=== PATIENT | female | born 1995 | race Caucasian/White ===

== ENCOUNTER 2019-01-24 08:16 | Emergency (ER) | payer MEDICAID, OTHER ==
[~2019-01-24] VITALS: Ht 170.2 cm; Wt 59.0 kg
[2019-01-24 08:21] VITALS: BP 133/64
--- NOTE | 2019-01-24 08:28 | NUR ---
Patient ambulated to bed 7 at this time.
--- NOTE | 2019-01-24 08:51 | NUR ---
PATIENT PRESENTS TO ED WITH THE CHIEF C/O COUGH FOR ONE WEEK. PT STATED TINGLING AND CHEST TIGHTNESS AND PALPITATION STARTED SINCE YESTERDAY. LUNGS CLEAR ON AUSCULTATION. COUGH WITH PHLEGM PRESENT, NO BLOOD IN PHLEGM. PER PT SHE VISITED HER PCP ON FRIDAY AND HAS BEEN TAKING MEDICINE SINCE THEN PER PRESCRIPTION. SHE WAS TOLD THAT SHE HAD INFECTION. PT DOESNOT WHAT INFECTION SHE HAS AND WAHT MEDICINE SHE IS TAKING. STATED SHE IS NAUSEATED, VOMITED X1. NO BLOOD IN VOMIT. DENIES DIARRHEA. SKIN IS PINK/WARM/DRY. AAOX4 WITH EVEN AND STEADY GAIT. HR EVEN AND REGULAR. PT DENIES ANY FEVER, CP, SOB AT THIS TIME. PATIENT STATES PAIN OF 5/10 AT THIS TIME. PLACED PT ON MONITOR. VSS. PATIENT POSITIONED FOR COMFORT. HOB ELEVATED. BEDRAILS UP X2. BED DOWN. ER MD MADE AWARE OF PT STATUS.
[2019-01-24] MEDS ORDERED: NACL 0.9% 1,000 ML IV SCH (08:56)
[2019-01-24] MEDS ORDERED: NACL 0.9% 1,000 ML IV ONE (08:56)
[2019-01-24] MEDS ORDERED: ALBUTEROL 0.083% 2.5 MG/3 ML NEBU INH ONE (09:00)
[2019-01-24] MEDS ORDERED: IPRATROPIUM 0.02% 0.5 MG/2.5 ML NEBU INH ONE (09:00)
[2019-01-24] MEDS ORDERED: diphenhydrAMINE 50 MG/ML VIAL IVP ONE (09:00)
[2019-01-24] MEDS ORDERED: methylPREDNISolone SS 125 MG/2 ML VIAL IVP ONE (09:00)
--- NOTE | 2019-01-24 09:36 | NUR ---
PATIENT RESTING IN ED BED 7 WITH VISITOR AT BEDSIDE. ORDERED BREATHING TREATMENT ADMINISTERED. TOLERATED WELL.NO ADVERSE SIDE EFFECTS. WILL CONTINUE TO MONITOR.
[2019-01-24 09:45] LABS: BASOPHILS % (AUTO) 0.5 % (0.0-2.0); EOSINOPHILS % (AUTO) 0.4 % (0.0-4.0); HEMATOCRIT 40.5 % (36-48); HEMOGLOBIN 13.6 g/dL (12.0-16.0); LYMPHOCYTES # (AUTO) 1.5 K/uL (2.5-16.5); LYMPHOCYTES % (AUTO) 49.5 % (20.5-51.1); MEAN CORPUSCULAR HEMOGLOBIN 28 pg (27-31); MEAN CORPUSCULAR HGB CONC 34 g/dL (33-37); MEAN CORPUSCULAR VOLUME 84.5 fL (80-94); MONOCYTES # (AUTO) 0.3 K/uL (0.8-1.0); MONOCYTES % (AUTO) 9.1 % (1.7-9.3); NEUTROPHILS # (AUTO) 1.2 K/uL (1.8-7.7); NEUTROPHILS % (AUTO) 40.5 % (42.2-75.2); PLATELET COUNT (AUTO) 261 K/uL (140-450); RED BLOOD CELL COUNT(AUTO) 4.79 MIL/uL (4.20-5.40); RED CELL DISTRIBUTION WIDTH 13.4 % (11.6-13.7); WHITE BLOOD COUNT (AUTO) 3.1 K/uL (4.8-10.8)
[2019-01-24 10:01] LABS: ANION GAP 14.8 (8-16); CREATININE 0.8 mg/dL (0.6-1.3); POTASSIUM 3.8 mmol/L (3.5-5.1)
[2019-01-24 10:07] LABS: ALBUMIN 3.8 g/dL (3.4-5.0); TOTAL BILIRUBIN 0.3 mg/dL (0.0-1.0)
[2019-01-24 10:11] LABS: APPEARANCE,URINE CLEAR (CLEAR); BILIRUBIN,URINE NEGATIVE (NEGATIVE); BLOOD, URINE TRACE-I (NEGATIVE); COLOR,URINE YELLOW (YELLOW); LEUKOCYTE ESTERASE ,URINE TRACE (NEGATIVE); NITRITE, URINE POSITIVE (NEGATIVE); UGLUCOSE NEGATIVE (NEGATIVE)
--- NOTE | 2019-01-24 10:22 | NUR ---
PT DENIES SOB OR DIFFICULTY BREATHING. SATURATING 97% IN ROOM AIR.
[2019-01-24] MEDS ORDERED: LEVOFLOXACIN 500 MG TAB PO ONE (10:25)
[2019-01-24 10:28] LABS: WBC,URINE 0-5 /HPF (0-5)
--- NOTE | 2019-01-24 10:45 | NUR ---
PT C/O DIZZINESS. IVF INFUSING. BS CHECKED WAS 93. MD AWARE.
[2019-01-24 11:05] VITALS: BP 114/64
--- NOTE | 2019-01-24 11:06 | NUR ---
Patient discharged with v/s stable. Written and verbal after care instructions given and explained. Patient alert, oriented and verbalized understanding of instructions. Ambulatory with steady gait. All questions addressed prior to discharge. ID band removed. Patient advised to follow up with PMD. Rx of LEVAQUIN, PREDNISONE, PROMETHAZINE given. Patient educated on indication of medication including possible reaction and side effects. Opportunity to ask questions provided and answered.
== END 2019-01-24 11:06 | disposition home or self-care (01) ==
LOC: MED 08:16
DX: J45.901 Unspecified asthma with (acute) exacerbation (principal); N30.90 Cystitis, unspecified without hematuria
CPT/HCPCS: 36415; 71045; 80053; 81001; 81025; 82948; 85025; 87086; 87804; 94640; 96374; 96375; 99284; J1200; J2930; J7030; J7613; J7644